=== PATIENT | female | born 1990 | race Caucasian/White ===

== ENCOUNTER 2016-11-10 18:53 | Emergency (ER) | payer OTHER ==
[~2016-11-10] VITALS: Ht 167.6 cm; Wt 94.3 kg
[2016-11-10 21:05] LABS: BASOPHIL % 0.4 % (0-2); PLATELET COUNT 246 x10^3mcL (130-400); RED CELL DISTRIBUTION WIDTH 12.9 % (11.5-14.5)
[2016-11-10 21:21] LABS: CALCIUM 8.3 mg/dL (8.5-10.1); CARBON DIOXIDE 27.5 mmol/L (21-32); CHLORIDE SERUM 105 mmol/L (98-107); CREATININE SERUM 0.6 mg/dL (0.6-1.0); GFR1 > 60 mL/min; GLUCOSE SERUM 116 mg/dL (74-106); POTASSIUM SERUM 3.5 mmol/L (3.5-5.1); SODIUM SERUM 142 mmol/L (136-145)
[2016-11-10 21:25] LABS: ALBUMIN 3.7 g/dL (3.4-5.0); ALKALINE PHOSPHATASE 96 U/L (46-116); ALT/SGPT 62 U/L (14-59); AST/SGOT 24 U/L (15-37); BILIRUBIN TOTAL 0.3 mg/dL (0.20-1.00); CHOLESTEROL 133 mg/dL (<200); FREE T4 0.81 ng/dL (0.76-1.46); HDL CHOLESTEROL 49 mg/dL (40-60); PHOSPHOROUS 3.7 mg/dL (2.5-4.9); TOTAL PROTEIN, SERUM 7.1 g/dL (6.4-8.2); URIC ACID 4.4 mg/dL (2.6-6.0)
[2016-11-10 22:04] VITALS: BP 116/85
== END 2016-11-10 22:07 | disposition home or self-care (01) ==
LOC: ED 18:53
PROVIDERS: Emergency Medicine
DX: F41.9 Anxiety disorder, unspecified (principal)
CPT/HCPCS: 83880; 84439; Q0092

== ENCOUNTER 2016-11-12 23:34 | Emergency (ER) | payer OTHER ==
[2016-11-13 02:32] VITALS: BP 135/74
== END 2016-11-13 02:32 | disposition home or self-care (01) ==
LOC: ED 23:34
DX: Z76.0 Encounter for issue of repeat prescription (principal); F41.0 Panic disorder [episodic paroxysmal anxiety]; E03.9 Hypothyroidism, unspecified

== ENCOUNTER 2016-11-13 02:57 | Emergency (ER) | payer OTHER ==
[2016-11-13 03:45] VITALS: BP 116/77
== END 2016-11-13 04:35 | disposition home or self-care (01) ==
LOC: ED 02:57
DX: F41.9 Anxiety disorder, unspecified (principal); F42.9 Obsessive-compulsive disorder, unspecified; Z79.899 Other long term (current) drug therapy

== ENCOUNTER 2016-11-16 02:13 | Emergency (ER) | payer OTHER ==
[~2016-11-16] VITALS: Ht 167.6 cm; Wt 93.0 kg
[2016-11-16 03:04] LABS: BASOPHIL % 0.3 % (0-2); PLATELET COUNT 271 x10^3mcL (130-400); RED CELL DISTRIBUTION WIDTH 12.6 % (11.5-14.5)
[2016-11-16 03:14] LABS: CALCIUM 9.5 mg/dL (8.5-10.1); CARBON DIOXIDE 30.7 mmol/L (21-32); CHLORIDE SERUM 104 mmol/L (98-107); CREATININE SERUM 0.7 mg/dL (0.6-1.0); GFR1 > 60 mL/min; GLUCOSE SERUM 90 mg/dL (74-106); POTASSIUM SERUM 3.5 mmol/L (3.5-5.1); SODIUM SERUM 142 mmol/L (136-145)
[2016-11-16 03:26] LABS: ALBUMIN 3.9 g/dL (3.4-5.0); ALKALINE PHOSPHATASE 93 U/L (46-116); ALT/SGPT 50 U/L (14-59); AST/SGOT 20 U/L (15-37); BILIRUBIN TOTAL 0.3 mg/dL (0.20-1.00); T4(THYROXINE) 5.5 ug/dL (4.7-13.3); TOTAL PROTEIN, SERUM 7.1 g/dL (6.4-8.2)
[2016-11-16 04:09] VITALS: BP 134/76
== END 2016-11-16 04:09 | disposition home or self-care (01) ==
LOC: ED 02:13
PROVIDERS: Emergency Medicine
DX: F41.9 Anxiety disorder, unspecified (principal); R06.00 Dyspnea, unspecified; F42.9 Obsessive-compulsive disorder, unspecified
CPT/HCPCS: Q0092

== ENCOUNTER 2016-11-26 15:26 | Emergency (ER) | payer OTHER ==
[~2016-11-26] VITALS: Ht 167.6 cm; Wt 92.1 kg
[2016-11-26 17:07] LABS: BASOPHIL % 0.4 % (0-2); PLATELET COUNT 236 x10^3mcL (130-400); RED CELL DISTRIBUTION WIDTH 13.3 % (11.5-14.5)
[2016-11-26 17:18] LABS: CALCIUM 9.1 mg/dL (8.5-10.1); CARBON DIOXIDE 29.5 mmol/L (21-32); CHLORIDE SERUM 105 mmol/L (98-107); CREATININE SERUM 0.7 mg/dL (0.6-1.0); GFR1 > 60 mL/min; GLUCOSE SERUM 86 mg/dL (74-106); POTASSIUM SERUM 3.7 mmol/L (3.5-5.1); SODIUM SERUM 141 mmol/L (136-145)
[2016-11-26 17:23] LABS: ALKALINE PHOSPHATASE 90 U/L (46-116); ALT/SGPT 54 U/L (14-59); AST/SGOT 19 U/L (15-37); BILIRUBIN TOTAL 0.3 mg/dL (0.20-1.00); TOTAL PROTEIN, SERUM 7.2 g/dL (6.4-8.2)
[2016-11-26 18:10] VITALS: BP 109/62
== END 2016-11-26 18:10 | disposition home or self-care (01) ==
LOC: ED 15:26
PROVIDERS: Emergency Medicine
DX: R07.89 Other chest pain (principal); F41.9 Anxiety disorder, unspecified; R25.3 Fasciculation; F42.9 Obsessive-compulsive disorder, unspecified; Z79.899 Other long term (current) drug therapy
CPT/HCPCS: 83880; Q0092

== ENCOUNTER 2016-12-01 17:25 | Emergency (ER) | payer OTHER ==
[2016-12-01 18:55] LABS: microscopic required? NO
[2016-12-01 18:59] LABS: BASOPHIL % 0.3 % (0-2); PLATELET COUNT 233 x10^3mcL (130-400); RED CELL DISTRIBUTION WIDTH 13.6 % (11.5-14.5)
[2016-12-01 19:05] LABS: UA SPECIFIC GRAVITY 1.015 (1.005-1.035); urine erythrocyte NEGATIVE (NEGATIVE)
[2016-12-01 19:08] LABS: CALCIUM 9.1 mg/dL (8.5-10.1); CARBON DIOXIDE 29.1 mmol/L (21-32); CHLORIDE SERUM 103 mmol/L (98-107); CREATININE SERUM 0.6 mg/dL (0.6-1.0); GFR1 > 60 mL/min; GLUCOSE SERUM 85 mg/dL (74-106); POTASSIUM SERUM 3.5 mmol/L (3.5-5.1); SODIUM SERUM 140 mmol/L (136-145)
[2016-12-01 19:13] LABS: ALBUMIN 4.2 g/dL (3.4-5.0); ALKALINE PHOSPHATASE 94 U/L (46-116); ALT/SGPT 58 U/L (14-59); AST/SGOT 25 U/L (15-37); BILIRUBIN TOTAL 0.42 mg/dL (0.20-1.00); TOTAL PROTEIN, SERUM 7.4 g/dL (6.4-8.2)
[2016-12-01 19:15] LABS: AMPHETAMINE QUAL UR NONE DETECTED (NEG <=1000)
[2016-12-02 13:56] VITALS: BP 107/70
== END 2016-12-02 13:56 ==
LOC: ED 17:25
PROVIDERS: Emergency Medicine
DX: F41.9 Anxiety disorder, unspecified (principal); F41.0 Panic disorder [episodic paroxysmal anxiety]; F42.9 Obsessive-compulsive disorder, unspecified
CPT/HCPCS: 80307; 83880; G0480; Q0092

== ENCOUNTER 2016-12-07 01:19 | Emergency (ER) | payer OTHER ==
[2016-12-07 02:42] VITALS: BP 111/73
== END 2016-12-07 02:42 | disposition home or self-care (01) ==
LOC: ED 01:19
DX: F41.9 Anxiety disorder, unspecified (principal)

== ENCOUNTER 2017-12-08 19:27 | Emergency (ER) | payer OTHER ==
[~2017-12-08] VITALS: Ht 167.6 cm; Wt 103.4 kg
[2017-12-08 19:43] VITALS: Ht 167.6 cm; Wt 103.4 kg
[2017-12-08 20:30] VITALS: BP 133/80
== END 2017-12-08 20:30 | disposition home or self-care (01) ==
LOC: ED 19:27
DX: J02.9 Acute pharyngitis, unspecified (principal); J98.01 Acute bronchospasm

== ENCOUNTER 2018-02-28 21:58 | Emergency (ER) | payer OTHER ==
[~2018-02-28] VITALS: Ht 167.6 cm; Wt 95.2 kg
[2018-02-28 22:11] VITALS: Ht 167.6 cm; Wt 95.2 kg
[2018-02-28 23:49] VITALS: BP 109/64
== END 2018-02-28 23:49 | disposition home or self-care (01) ==
LOC: ED 21:58
DX: F41.9 Anxiety disorder, unspecified (principal)

== ENCOUNTER 2018-12-02 23:13 | Emergency (ER) | payer OTHER ==
[~2018-12-02] VITALS: Ht 170.2 cm; Wt 103.4 kg
[2018-12-02 23:16] VITALS: Ht 170.2 cm; Wt 103.4 kg
[2018-12-03 01:42] VITALS: BP 132/82
== END 2018-12-03 01:42 | disposition home or self-care (01) ==
LOC: ED 23:13
DX: J10.1 Influenza due to other identified influenza virus with other respiratory manifestations (principal); F32.9 Major depressive disorder, single episode, unspecified; F41.9 Anxiety disorder, unspecified; Z87.19 Personal history of other diseases of the digestive system
CPT/HCPCS: 87804; J1885

== ENCOUNTER 2019-08-31 08:32 | Emergency (ER) | payer OTHER ==
[~2019-08-31] VITALS: Ht 167.6 cm; Wt 104.9 kg
[2019-08-31 09:15] VITALS: BP 153/102; Ht 167.6 cm; Wt 104.9 kg
== END 2019-08-31 10:59 | disposition home or self-care (01) ==
LOC: ED 08:32
DX: J20.9 Acute bronchitis, unspecified (principal)

== ENCOUNTER 2020-02-29 01:11 | Emergency (ER) | payer OTHER ==
[~2020-02-29] VITALS: Ht 167.6 cm; Wt 90.7 kg
[2020-02-29 01:30] VITALS: Ht 167.6 cm; Wt 90.7 kg
[2020-02-29 03:05] LABS: BASOPHIL % 0.7 % (0-2); PLATELET COUNT 248 x10^3mcL (130-400); RED CELL DISTRIBUTION WIDTH 13.3 % (11.5-14.5)
[2020-02-29 03:28] LABS: CALCIUM 8.7 mg/dL (8.5-10.1); CHLORIDE SERUM 104 mmol/L (98-107); CREATININE SERUM 0.7 mg/dL (0.6-1.0); GFR1 > 60 mL/min; GLUCOSE SERUM 82 mg/dL (74-106); POTASSIUM SERUM 3.3 mmol/L (3.5-5.1); SODIUM SERUM 142 mmol/L (136-145)
[2020-02-29 04:17] VITALS: BP 116/62
== END 2020-02-29 04:17 | disposition home or self-care (01) ==
LOC: ED 01:11
PROVIDERS: Emergency Medicine
DX: R53.1 Weakness (principal); E87.6 Hypokalemia; R06.00 Dyspnea, unspecified; Z20.828 Contact with and (suspected) exposure to other viral communicable diseases
CPT/HCPCS: 36600; Q0092; U0003-CS

== ENCOUNTER 2020-10-26 21:44 | Emergency (ER) | payer OTHER ==
[~2020-10-26] VITALS: Ht 167.6 cm; Wt 80.7 kg
[2020-10-26 21:56] VITALS: Ht 167.6 cm; Wt 80.7 kg
[2020-10-26 22:57] LABS: BASOPHIL % 0.8 % (0.2-1.3); PLATELET COUNT 282 x10^3mcL (179-408); RED CELL DISTRIBUTION WIDTH 13.8 % (12.3-17.7)
[2020-10-26 23:07] LABS: CALCIUM 8.4 mg/dL (8.5-10.1); CARBON DIOXIDE 30.3 mmol/L (21-32); CHLORIDE SERUM 102 mmol/L (98-107); CREATININE SERUM 0.5 mg/dL (0.6-1.0); GFR1 > 60 mL/min; GLUCOSE SERUM 84 mg/dL (74-106); POTASSIUM SERUM 3.9 mmol/L (3.5-5.1); SODIUM SERUM 138 mmol/L (136-145)
[2020-10-26 23:11] LABS: ALBUMIN 3.5 g/dL (3.4-5.0); ALKALINE PHOSPHATASE 82 U/L (46-116); ALT/SGPT 56 U/L (14-59); AST/SGOT 21 U/L (15-37); BILIRUBIN TOTAL 0.2 mg/dL (0.20-1.00); LIPASE 60 IU/L (73-393); TOTAL PROTEIN, SERUM 7.1 g/dL (6.4-8.2)
[2020-10-27] MEDS ORDERED: ONDANSETRON4 M3 PO (00:45)
[2020-10-27 00:52] VITALS: BP 96/55
== END 2020-10-27 00:52 | disposition home or self-care (01) ==
LOC: ED 21:44
PROVIDERS: Emergency Medicine
DX: F13.20 Sedative, hypnotic or anxiolytic dependence, uncomplicated (principal)
CPT/HCPCS: 87804